=== PATIENT | female | born 1990 | race Caucasian/White ===

== ENCOUNTER 2016-08-18 18:02 | Emergency (ER) | payer OTHER ==
[~2016-08-18] VITALS: Ht 162.6 cm; Wt 53.9 kg
[~2016-08-18 18:02] MED LIST: AUGMENTIN500 MG PO; NAPROSYN500 MG PO; PHENERGAN VC1 ML PO; TORADOL10 MG PO
[2016-08-18] MEDS ORDERED: FIORICET 50-301 EACH PO (21:12)
[2016-08-18 21:21] VITALS: BP 109/68
== END 2016-08-18 21:23 | disposition home or self-care (01) ==
LOC: EME 18:02
DX: G43.909 Migraine, unspecified, not intractable, without status migrainosus (principal); F17.200 Nicotine dependence, unspecified, uncomplicated
CPT/HCPCS: 99281; 99284

== ENCOUNTER 2016-12-14 08:58 | Emergency (ER) | payer OTHER ==
[~2016-12-14] VITALS: Ht 162.6 cm; Wt 49.2 kg
[~2016-12-14 08:58] MED LIST changes: +FIORICET 50-301 EACH PO
[2016-12-14] MEDS ORDERED: FIORICET WI1 CAPSULE PO (11:07)
[2016-12-14 11:13] VITALS: BP 102/70
== END 2016-12-14 11:14 | disposition home or self-care (01) ==
LOC: EME 08:58
DX: R51 Headache (principal); M54.2 Cervicalgia; F17.200 Nicotine dependence, unspecified, uncomplicated
CPT/HCPCS: 99281; 99284; J1100

== ENCOUNTER 2016-12-22 10:28 | Emergency (ER) | payer OTHER ==
[~2016-12-22] VITALS: Ht 162.6 cm; Wt 49.3 kg
[~2016-12-22 10:28] MED LIST changes: +FIORICET WI1 CAPSULE PO
[2016-12-22] MEDS ORDERED: FIORICET WI1 CAPSULE PO (13:33)
[2016-12-22 13:45] VITALS: BP 110/71
== END 2016-12-22 13:46 | disposition home or self-care (01) ==
LOC: EME 10:28
DX: G43.909 Migraine, unspecified, not intractable, without status migrainosus (principal); F17.200 Nicotine dependence, unspecified, uncomplicated
CPT/HCPCS: 99281; 99285; J1100; J1885